=== PATIENT | female | born 1970 | race Hispanic/Latino ===

== ENCOUNTER 2017-08-27 19:02 | Emergency (ER) | payer SELFPAY | END 2017-08-27 20:40 | disposition home or self-care (01) | LOC: ERS 19:02 | DX: R21 Rash and other nonspecific skin eruption (principal); E11.9 Type 2 diabetes mellitus without complications; K21.9 Gastro-esophageal reflux disease without esophagitis; F17.210 Nicotine dependence, cigarettes, uncomplicated; Z79.84 Long term (current) use of oral hypoglycemic drugs | CPT/HCPCS: 99282 ==

== ENCOUNTER 2018-05-31 07:18 | Emergency (ER) | payer SELFPAY ==
[2018-05-31] MEDS ORDERED: Acetaminophen 325 MG TAB ONE (09:23)
[2018-05-31] MEDS ORDERED: HYDROcodone/Acetaminophen 5/325 mg Tablet ONE (09:23)
[2018-05-31] MEDS ORDERED: Ketorolac Tromethamine 60 MG/2 ML VIAL ONE (09:23)
== END 2018-05-31 10:06 | disposition home or self-care (01) ==
LOC: ERS 07:18
DX: M54.5 Low back pain (principal); M79.605 Pain in left leg; E11.9 Type 2 diabetes mellitus without complications; F17.210 Nicotine dependence, cigarettes, uncomplicated; Z79.84 Long term (current) use of oral hypoglycemic drugs
CPT/HCPCS: 96372; J1885

== ENCOUNTER 2018-06-15 15:54 | Emergency (ER) | payer SELFPAY ==
[2018-06-15 17:03] LABS: #Eosinphils 0.1 thou/uL (0.0-0.7); #Lymphocytes 1.3 thou/uL (1.20-3.40); #Monocytes 0.4 thou/uL (0.11-0.59); #Neutrophils 3.6 thou/uL (1.40-6.50); %Eosinophils 1.3 % (0.0-10.0); %Monocytes 7.6 % (0.0-10.0); %Neutrophils 67.1 % (42.0-75.0); Hemoglobin 14.9 g/dL (12.0-16.0); Mean Corpuscular HGB CONC 34.8 g/dL (32.0-36.0); Mean Corpuscular Hemoglobin 28.6 pg (27.0-31.0); Mean Corpuscular Volume 82.1 fL (78.0-98.0); Mean Platelet Volume 8.7 fL (7.4-10.4); Platelet Count 183 thou/uL (130-400); RBC Distribution Width 12.1 % (11.5-14.5); Red Blood Cell (RBC) Count 5.21 mill/uL (4.20-5.40); White Blood Cell (WBC) Count 5.3 thou/uL (4.8-10.8)
[2018-06-15 17:26] LABS: ALT (SGPT) 33 U/L (8-55); AST (SGOT) 33 U/L (5-34); Albumin 4.2 g/dL (3.5-5.0); Alkaline Phosphatase 78 U/L (40-150); Anion Gap 13 mmol/L (10-20); BUN (Urea Nitrogen) 6 mg/dL (7.0-18.7); Bilirubin, Total 0.4 mg/dL (0.2-1.2); Calc. Creatinine Clearance 0 mL/min (70-130); Calcium 9.8 mg/dL (7.8-10.44); Carbon Dioxide 25 mmol/L (22-29); Chloride 103 mmol/L (98-107); Estimated GFR-MDRD 85; Globulin 3.6 g/dL (2.4-3.5); Glucose 175 mg/dL (70-105); Lipase 11 U/L (8-78); Protein, Total 7.8 g/dL (6.0-8.3); Sodium 137 mmol/L (136-145)
[2018-06-15 18:04] LABS: CKMB 2.5 ng/mL (0-6.6); Troponin I Less than 0.010 ng/mL (< 0.028)
[2018-06-15 18:43] LABS: Bilirubin Negative (Negative); Blood, Urine Negative (Negative); Clarity CLEAR (Clear); Glucose, Urine (Dipstick) Negative (Negative); Leukocyte Small (Negative); Nitrite Negative (Negative); Protein, Urine (Dipstick) Negative (Neg-Trace); Specific Gravity, Urine 1.011 (1.002-1.036)
[2018-06-15 18:45] LABS: Bacteria/HPF 1+ HPF (None Seen); Hyaline Casts/LPF 0-3 HYALINE CAST LPF (0-3 Hyaline); Pathc Cast-AUWi Flag 0.58 (0-2.49)
[2018-06-15] MEDS ORDERED: Ketorolac Tromethamine 30 MG/ML VIAL ONE (20:02)
--- NOTE | 2018-06-15 20:43 | RAD ---
CHEST ONE VIEW: 06/15/18 HISTORY: Chest pain. FINDINGS: The cardiac silhouette is magnified by projection. Pulmonary vasculature is unremarkable. Mediastinum is midline. No lobar consolidation or evidence of pneumothorax. IMPRESSION: No active cardiopulmonary abnormalities are demonstrated. POS: [facility]
== END 2018-06-15 20:34 | disposition home or self-care (01) ==
LOC: ERS 15:54
DX: R42 Dizziness and giddiness (principal); R07.9 Chest pain, unspecified; E11.9 Type 2 diabetes mellitus without complications; F17.210 Nicotine dependence, cigarettes, uncomplicated; Z79.84 Long term (current) use of oral hypoglycemic drugs; Z79.899 Other long term (current) drug therapy
CPT/HCPCS: 36415; 36416; 71045; 80053; 81003; 81015; 82553; 83690; 84484; 85025; 93005; 94760; 96372; J1885

== ENCOUNTER 2021-03-20 02:05 | Emergency (ER) | payer SELFPAY ==
[2021-03-20] MEDS ORDERED: HYDROcodone/Acetaminophen 10/325 mg Tablet ONE (03:29)
== END 2021-03-20 03:32 | disposition home or self-care (01) ==
LOC: ERS 02:05
DX: G89.18 Other acute postprocedural pain (principal); M79.641 Pain in right hand; M79.644 Pain in right finger(s); E11.9 Type 2 diabetes mellitus without complications; K21.9 Gastro-esophageal reflux disease without esophagitis; F17.210 Nicotine dependence, cigarettes, uncomplicated
CPT/HCPCS: 99281

== ENCOUNTER 2021-03-23 11:31 | Emergency (ER) | payer SELFPAY ==
[~2021-03-23 11:31] MED LIST: Iopamidol-370 76% 500 ML 1 ML ONE
[2021-03-23] MEDS ORDERED: Ondansetron PF 4 MG/2 ML Vial ONE (12:17)
[2021-03-23 13:08] LABS: #Eosinphils 0.1 thou/uL (0.0-0.7); #Lymphocytes 0.9 thou/uL (1.20-3.40); #Monocytes 0.4 thou/uL (0.11-0.59); #Neutrophils 7.1 thou/uL (1.40-6.50); %Basophils 0.1 % (0.0-1.0); %Eosinophils 1.3 % (0.0-10.0); %Lymphocytes 10.9 % (21.0-51.0); %Monocytes 4.3 % (0.0-10.0); %Neutrophils 83.4 % (42.0-75.0); Hemoglobin 11.2 g/dL (12.0-16.0); Mean Corpuscular HGB CONC 33.5 g/dL (32.0-36.0); Mean Corpuscular Volume 86.8 fL (78.0-98.0); Mean Platelet Volume 8.2 fL (7.4-10.4); Platelet Count 188 thou/uL (130-400); RBC Distribution Width 11.7 % (11.5-14.5); Red Blood Cell (RBC) Count 3.85 mill/uL (4.20-5.40); White Blood Cell (WBC) Count 8.5 thou/uL (4.8-10.8)
[2021-03-23 13:32] LABS: ALT (SGPT) 24 U/L (8-55); AST (SGOT) 25 U/L (5-34); Albumin 3.6 g/dL (3.5-5.0); Alkaline Phosphatase 72 U/L (40-110); Anion Gap 13 mmol/L (10-20); BUN (Urea Nitrogen) 9 mg/dL (7.0-18.7); Bilirubin, Total 0.7 mg/dL (0.2-1.2); Calc. Creatinine Clearance 0 mL/min (70-130); Calcium 9.6 mg/dL (7.8-10.44); Carbon Dioxide 28 mmol/L (22-29); Chloride 99 mmol/L (98-107); Globulin 3.8 g/dL (2.4-3.5); Glucose 131 mg/dL (70-105); Lipase Less than 4 U/L (8-78); Potassium 5.4 mmol/L (3.5-5.1); Protein, Total 7.4 g/dL (6.0-8.3); Sodium 135 mmol/L (136-145)
[2021-03-23] MEDS ORDERED: Morphine 4 MG/ML VIAL ONE (15:45)
== END 2021-03-23 16:51 | disposition home or self-care (01) ==
LOC: ERS 11:31
DX: E87.5 Hyperkalemia (principal); R53.1 Weakness; S52.91XD Unspecified fracture of right forearm, subsequent encounter for closed fracture with routine healing; E11.9 Type 2 diabetes mellitus without complications; K21.9 Gastro-esophageal reflux disease without esophagitis; F17.290 Nicotine dependence, other tobacco product, uncomplicated
CPT/HCPCS: 36415; 71275; 80053; 83690; 84484; 85025; 85379; 93005; 96374; 96375; J2270; J2405; Q9967

== ENCOUNTER 2021-07-01 10:13 | Inpatient (IN) | payer SELFPAY ==
[2021-07-01] MEDS ORDERED: Dexamethasone 10 MG/ML VIAL ONE (10:52)
[2021-07-01 11:14] LABS: #Lymphocytes 0.5 thou/uL (1.20-3.40); #Monocytes 0.1 thou/uL (0.11-0.59); %Lymphocytes 13.4 % (21.0-51.0); %Monocytes 3.1 % (0.0-10.0); %Neutrophils 83.5 % (42.0-75.0); Hemoglobin 11.9 g/dL (12.0-16.0); Mean Corpuscular HGB CONC 33.2 g/dL (32.0-36.0); Mean Corpuscular Hemoglobin 26.7 pg (27.0-31.0); Mean Corpuscular Volume 80.4 fL (78.0-98.0); Mean Platelet Volume 8.5 fL (7.4-10.4); Platelet Count 126 thou/uL (130-400); Red Blood Cell (RBC) Count 4.46 mill/uL (4.20-5.40); White Blood Cell (WBC) Count 3.6 thou/uL (4.8-10.8)
[2021-07-01 11:33] LABS: ALT (SGPT) 15 U/L (8-55); AST (SGOT) 35 U/L (5-34); Albumin 3.3 g/dL (3.5-5.0); Alkaline Phosphatase 84 U/L (40-110); Anion Gap 11 mmol/L (10-20); BUN (Urea Nitrogen) 5 mg/dL (9.8-20.1); Bilirubin, Total 0.4 mg/dL (0.2-1.2); Calc. Creatinine Clearance 0 mL/min (70-130); Calcium 7.8 mg/dL (7.8-10.44); Carbon Dioxide 23 mmol/L (22-29); Chloride 108 mmol/L (98-107); Globulin 2.9 g/dL (2.4-3.5); Glucose 107 mg/dL (70-105); Potassium 3.8 mmol/L (3.5-5.1); Protein, Total 6.2 g/dL (6.0-8.3); Sodium 138 mmol/L (136-145)
[2021-07-01 12:56] LABS: BHCG - Serum Negative (NEGATIVE); Pregs Control Background? CLEAR/WHITE (CLR/WHITE); Pregs Control Bar Appear? YES (CONTROL BAR)
[2021-07-01 13:22] LABS: Ferritin 1040.15 ng/mL (10-291)
[2021-07-01] MEDS ORDERED: cloNIDine 0.1 MG TAB PO PRN (15:05)
[2021-07-01] MEDS ORDERED: Polyethylene Glycol 3350 17 GM Packet PO PRN (15:05)
[2021-07-01] MEDS ORDERED: Dextrose 5% in Water 1,000 ML IV PRN (15:05)
[2021-07-01] MEDS ORDERED: Insulin Regular 300 UNITS/3 ML VIAL SC PRN ×2 (15:05)
[2021-07-01] MEDS ORDERED: Ondansetron PF 4 MG/2 ML Vial IVP PRN (15:05)
[2021-07-01] MEDS ORDERED: Loratadine 10 MG TAB PO PRN (15:05)
[2021-07-01] MEDS ORDERED: Dextrose 50% Abboject 50 ML SYRINGE SLOW IVP PRN (15:05)
[2021-07-01] MEDS ORDERED: Calcium Carbonate 500 MG ChewTAB PO PRN (15:05)
[2021-07-01] MEDS ORDERED: Ondansetron ODT 4 MG TAB PO PRN (15:05)
[2021-07-01] MEDS: Acetaminophen 325 MG TAB PO PRN (15:48)
[2021-07-01 16:25] VITALS: BMI 37.4
[2021-07-01] MEDS: GUAIFENESIN SF SOLN 200 MG/10 ML UDCUP PO PRN (16:58)
[2021-07-01] MEDS: Enoxaparin Sodium 40 MG/0.4 ML SYRINGE SC SCH (20:31)
[2021-07-01] MEDS: Cholecalciferol 1,000 UNITS (25 MCG) TAB PO SCH (20:31)
[2021-07-01] MEDS: guaiFENesin ER 600 MG TAB PO SCH (20:31)
[2021-07-01] MEDS: Zinc Sulfate 220 MG CAP PO SCH (20:31)
[2021-07-01] MEDS: Famotidine 20 MG TAB PO SCH (20:31)
[2021-07-02] MEDS: Acetaminophen 325 MG TAB PO PRN (02:55)
[2021-07-02 06:17] LABS: #Lymphocytes 0.6 thou/uL (1.20-3.40); #Monocytes 0.2 thou/uL (0.11-0.59); #Neutrophils 2.9 thou/uL (1.40-6.50); %Basophils 0.1 % (0.0-1.0); %Eosinophils 0.1 % (0.0-10.0); %Lymphocytes 16.4 % (21.0-51.0); %Monocytes 4.4 % (0.0-10.0); %Neutrophils 79.1 % (42.0-75.0); Hemoglobin 12.9 g/dL (12.0-16.0); Mean Corpuscular HGB CONC 31.1 g/dL (32.0-36.0); Mean Corpuscular Hemoglobin 25.1 pg (27.0-31.0); Mean Corpuscular Volume 80.5 fL (78.0-98.0); Mean Platelet Volume 8.5 fL (7.4-10.4); Platelet Count 171 thou/uL (130-400); RBC Distribution Width 13.2 % (11.5-14.5); Red Blood Cell (RBC) Count 5.14 mill/uL (4.20-5.40); White Blood Cell (WBC) Count 3.6 thou/uL (4.8-10.8)
[2021-07-02 06:46] LABS: ALT (SGPT) 17 U/L (8-55); AST (SGOT) 34 U/L (5-34); Albumin 3.5 g/dL (3.5-5.0); Alkaline Phosphatase 83 U/L (40-110); Anion Gap 16 mmol/L (10-20); BUN (Urea Nitrogen) 11 mg/dL (9.8-20.1); Bilirubin, Total 0.3 mg/dL (0.2-1.2); Calc. Creatinine Clearance 152 mL/min (70-130); Calcium 8.2 mg/dL (7.8-10.44); Carbon Dioxide 19 mmol/L (22-29); Chloride 108 mmol/L (98-107); Globulin 3.3 g/dL (2.4-3.5); Glucose 134 mg/dL (70-105); Magnesium 1.9 mg/dL (1.6-2.6); Potassium 4.3 mmol/L (3.5-5.1); Protein, Total 6.8 g/dL (6.0-8.3); Sodium 139 mmol/L (136-145)
[2021-07-02] MEDS ORDERED: Dexamethasone 10 MG/ML VIAL SLOW IVP SCH (09:00)
[2021-07-02] MEDS: Ascorbic Acid 500 mg Chewable Tablet PO SCH (09:14)
[2021-07-02] MEDS: Famotidine 20 MG TAB PO SCH ×2 (09:14→20:33)
[2021-07-02] MEDS: guaiFENesin ER 600 MG TAB PO SCH ×2 (09:14→20:34)
[2021-07-02] MEDS: Multivit, Therapeutic 1 TAB PO SCH (09:14)
[2021-07-02] MEDS: Aspirin 81 mg Enteric Coated Tablet PO SCH (09:14)
[2021-07-02] MEDS ORDERED: Doxycycline 100 MG CAP PO SCH (10:00)
[2021-07-02] MEDS: cefTRIAXone\\ROCEPHIN 2 GM in Sodium Chloride 0.9% 100 ML IVPB SCH (10:26)
[2021-07-02] MEDS: GUAIFENESIN SF SOLN 200 MG/10 ML UDCUP PO PRN ×3 (10:26→18:27)
[2021-07-02] MEDS ORDERED: Sodium Chloride 0.9% 500 ML IV SCH (12:45)
[2021-07-02] MEDS: Dexamethasone 4 mg/ml Vial SLOW IVP SCH (16:26)
[2021-07-02] MEDS: Cholecalciferol 1,000 UNITS (25 MCG) TAB PO SCH (20:33)
[2021-07-02] MEDS: Doxycycline 100 MG CAP PO SCH (20:33)
[2021-07-02] MEDS: Zinc Sulfate 220 MG CAP PO SCH (20:33)
[2021-07-02] MEDS: Enoxaparin Sodium 40 MG/0.4 ML SYRINGE SC SCH (20:34)
[2021-07-03 05:39] LABS: #Lymphocytes 0.7 thou/uL (1.20-3.40); #Monocytes 0.2 thou/uL (0.11-0.59); #Neutrophils 3.7 thou/uL (1.40-6.50); %Eosinophils 0.1 % (0.0-10.0); %Monocytes 4.6 % (0.0-10.0); %Neutrophils 79.3 % (42.0-75.0); Mean Corpuscular Hemoglobin 25.8 pg (27.0-31.0); Mean Corpuscular Volume 80.5 fL (78.0-98.0); Mean Platelet Volume 8.5 fL (7.4-10.4); Platelet Count 224 thou/uL (130-400); RBC Distribution Width 13.1 % (11.5-14.5); Red Blood Cell (RBC) Count 5.03 mill/uL (4.20-5.40); White Blood Cell (WBC) Count 4.6 thou/uL (4.8-10.8)
[2021-07-03 06:02] LABS: ALT (SGPT) 20 U/L (8-55); AST (SGOT) 39 U/L (5-34); Albumin 3.6 g/dL (3.5-5.0); Alkaline Phosphatase 76 U/L (40-110); Anion Gap 16 mmol/L (10-20); BUN (Urea Nitrogen) 14 mg/dL (9.8-20.1); Bilirubin, Total 0.3 mg/dL (0.2-1.2); CRP (Inflammatory) 3.77 mg/dL (= or < 0.5); Calc. Creatinine Clearance 139 mL/min (70-130); Calcium 8.6 mg/dL (7.8-10.44); Carbon Dioxide 20 mmol/L (22-29); Chloride 108 mmol/L (98-107); Globulin 3.4 g/dL (2.4-3.5); Glucose 138 mg/dL (70-105); Potassium 4.7 mmol/L (3.5-5.1); Sodium 139 mmol/L (136-145)
[2021-07-03] MEDS: Ascorbic Acid 500 mg Chewable Tablet PO SCH (09:03)
[2021-07-03] MEDS: Aspirin 81 mg Enteric Coated Tablet PO SCH (09:03)
[2021-07-03] MEDS: Famotidine 20 MG TAB PO SCH ×2 (09:04→20:11)
[2021-07-03] MEDS: GUAIFENESIN SF SOLN 200 MG/10 ML UDCUP PO PRN (09:04)
[2021-07-03] MEDS: Doxycycline 100 MG CAP PO SCH ×2 (09:04→20:15)
[2021-07-03] MEDS: guaiFENesin ER 600 MG TAB PO SCH ×2 (09:04→20:11)
[2021-07-03] MEDS: Multivit, Therapeutic 1 TAB PO SCH (09:05)
[2021-07-03] MEDS: cefTRIAXone\\ROCEPHIN 2 GM in Sodium Chloride 0.9% 100 ML IVPB SCH (12:17)
[2021-07-03] MEDS: Dexamethasone 4 mg/ml Vial SLOW IVP SCH (16:22)
[2021-07-03] MEDS: Acetaminophen 325 MG TAB PO PRN (20:11)
[2021-07-03] MEDS: Enoxaparin Sodium 40 MG/0.4 ML SYRINGE SC SCH (20:12)
[2021-07-03] MEDS: Zinc Sulfate 220 MG CAP PO SCH (20:12)
[2021-07-03] MEDS: Cholecalciferol 1,000 UNITS (25 MCG) TAB PO SCH (20:16)
[2021-07-04] MEDS: GUAIFENESIN SF SOLN 200 MG/10 ML UDCUP PO PRN ×2 (05:50→21:00)
[2021-07-04 06:23] LABS: #Basophils 0.1 thou/uL (0.0-0.2); #Lymphocytes 0.8 thou/uL (1.20-3.40); #Monocytes 0.4 thou/uL (0.11-0.59); #Neutrophils 4.6 thou/uL (1.40-6.50); %Basophils 1.8 % (0.0-1.0); %Lymphocytes 13.4 % (21.0-51.0); %Monocytes 6.9 % (0.0-10.0); %Neutrophils 77.9 % (42.0-75.0); Hemoglobin 12.9 g/dL (12.0-16.0); Mean Corpuscular HGB CONC 32.3 g/dL (32.0-36.0); Mean Corpuscular Hemoglobin 25.8 pg (27.0-31.0); Mean Platelet Volume 8.5 fL (7.4-10.4); Platelet Count 262 thou/uL (130-400); Red Blood Cell (RBC) Count 4.99 mill/uL (4.20-5.40); White Blood Cell (WBC) Count 5.9 thou/uL (4.8-10.8)
[2021-07-04 06:36] LABS: Anion Gap 16 mmol/L (10-20); BUN (Urea Nitrogen) 16 mg/dL (9.8-20.1); CRP (Inflammatory) 1.33 mg/dL (= or < 0.5); Calc. Creatinine Clearance 155 mL/min (70-130); Calcium 8.6 mg/dL (7.8-10.44); Carbon Dioxide 17 mmol/L (22-29); Chloride 108 mmol/L (98-107); Glucose 118 mg/dL (70-105); Potassium 4.2 mmol/L (3.5-5.1); Sodium 137 mmol/L (136-145)
[2021-07-04] MEDS: Famotidine 20 MG TAB PO SCH ×2 (08:05→21:01)
[2021-07-04] MEDS: guaiFENesin ER 600 MG TAB PO SCH ×2 (08:08→21:01)
[2021-07-04] MEDS: Ascorbic Acid 500 mg Chewable Tablet PO SCH (08:08)
[2021-07-04] MEDS: Multivit, Therapeutic 1 TAB PO SCH (08:08)
[2021-07-04] MEDS: Aspirin 81 mg Enteric Coated Tablet PO SCH (08:08)
[2021-07-04] MEDS: Doxycycline 100 MG CAP PO SCH ×2 (08:08→21:01)
[2021-07-04] MEDS: Dexamethasone 4 mg/ml Vial SLOW IVP SCH (17:35)
[2021-07-04] MEDS: cefTRIAXone\\ROCEPHIN 2 GM in Sodium Chloride 0.9% 100 ML IVPB SCH (21:00)
[2021-07-04] MEDS: Cholecalciferol 1,000 UNITS (25 MCG) TAB PO SCH (21:01)
[2021-07-04] MEDS: Enoxaparin Sodium 40 MG/0.4 ML SYRINGE SC SCH (21:01)
[2021-07-04] MEDS: Zinc Sulfate 220 MG CAP PO SCH (21:01)
[2021-07-05 08:45] VITALS: BP 96/65; TEMP 98.5
[2021-07-05] MEDS: Doxycycline 100 MG CAP PO SCH (09:08)
[2021-07-05] MEDS: guaiFENesin ER 600 MG TAB PO SCH (09:08)
[2021-07-05] MEDS: Ascorbic Acid 500 mg Chewable Tablet PO SCH (09:08)
[2021-07-05] MEDS: Multivit, Therapeutic 1 TAB PO SCH (09:08)
[2021-07-05] MEDS: Famotidine 20 MG TAB PO SCH (09:08)
[2021-07-05] MEDS: Aspirin 81 mg Enteric Coated Tablet PO SCH (09:08)
[2021-07-05 12:20] LABS: #Lymphocytes 1.5 thou/uL (1.20-3.40); #Monocytes 0.6 thou/uL (0.11-0.59); #Neutrophils 7.2 thou/uL (1.40-6.50); %Eosinophils 0.3 % (0.0-10.0); %Monocytes 6.5 % (0.0-10.0); %Neutrophils 77.3 % (42.0-75.0); Hemoglobin 13.6 g/dL (12.0-16.0); Mean Corpuscular HGB CONC 34.2 g/dL (32.0-36.0); Mean Corpuscular Hemoglobin 27.1 pg (27.0-31.0); Mean Corpuscular Volume 79.3 fL (78.0-98.0); Mean Platelet Volume 8.3 fL (7.4-10.4); Platelet Count 318 thou/uL (130-400); RBC Distribution Width 12.9 % (11.5-14.5); Red Blood Cell (RBC) Count 5.01 mill/uL (4.20-5.40); White Blood Cell (WBC) Count 9.3 thou/uL (4.8-10.8)
[2021-07-05 12:38] LABS: Anion Gap 15 mmol/L (10-20); BUN (Urea Nitrogen) 18 mg/dL (9.8-20.1); Calc. Creatinine Clearance 148 mL/min (70-130); Calcium 8.7 mg/dL (7.8-10.44); Carbon Dioxide 19 mmol/L (22-29); Chloride 108 mmol/L (98-107); Glucose 66 mg/dL (70-105); Potassium 3.9 mmol/L (3.5-5.1); Sodium 138 mmol/L (136-145)
[2021-07-05] MEDS: cefTRIAXone\\ROCEPHIN 2 GM in Sodium Chloride 0.9% 100 ML IVPB SCH (13:04)
== END 2021-07-05 16:21 | disposition home or self-care (01) | DRG 871 ==
LOC: ERS 10:13 → T4-B 12:17
PROVIDERS: ADMIT Internal Medicine; ATTEND Family Medicine
PROC: 8E0ZXY6 Isolation (ICD-10-PCS; principal; 2021-07-01)
DX: A41.89 Other specified sepsis (principal); J96.01 Acute respiratory failure with hypoxia; U07.1 COVID-19; J12.82 Pneumonia due to coronavirus disease 2019; E11.9 Type 2 diabetes mellitus without complications; K21.9 Gastro-esophageal reflux disease without esophagitis; Z90.710 Acquired absence of both cervix and uterus; F17.290 Nicotine dependence, other tobacco product, uncomplicated; D64.9 Anemia, unspecified
CPT/HCPCS: 36415; 36416; 71045; 71275; 80048; 80053; 82728; 83735; 84484; 84703; 85025; 85379; 86140; 93005; J0696; J1100; J1650; J3490; J7030; Q9967